=== PATIENT | male | born 1990 | race Caucasian/White ===

== ENCOUNTER 2023-06-27 09:09 | Emergency (ER) | payer OTHER, SELFPAY ==
[2023-06-27 09:34] VITALS: BP 126/80; PULSE 101; RESP 18; TEMP 36.9; O2SAT 97
--- NOTE | 2023-06-27 09:45 | ED.URI ---
HPI - URI/Sore Throat General Chief Complaint: Upper Respiratory Infection Stated Complaint: flu like symptoms Time Seen by Provider: 06/27/23 09:55 Source: patient and RN notes reviewed Mode of arrival: ambulatory Limitations: no limitations History of Present Illness HPI Narrative: 33 year old male presents with concern for 2 day history of fever, BA, STARR, cough. He has taken Dayquil without much relief. He reports cough at night that causes him trouble sleeping. MD elicited complaint: cough and sore throat Related Data Allergies Allergy/AdvReac Type Severity Reaction Status Date / Time amoxicillin [From Augmentin] Allergy Rash Verified 06/27/23 09:35 clavulanic acid Allergy Rash Verified 06/27/23 09:35 [From Augmentin] Review of Systems Review of Systems: CONSTITUTIONAL: Reports malaise, fever. EYES: Denies visual changes, redness, or discharge. ENT: Reports rhinorrhea, congestion, and sore throat. CARDIOVASCULAR: Denies chest pain, palpitations, or edema. RESPIRATORY: Reports cough, dyspnea. GASTROINTESTINAL: Denies abdominal pain, nausea, vomiting, diarrhea SKIN: Denies rash or itching. MUSCULOSKELETAL: Reports myalgia. NEUROLOGIC: Reports headache. All systems reviewed & are unremarkable except as noted in HPI and below PMFSH Comments At time of signature, agree with nursing past medical, surgical, social and family history. There is no relevant family history pertinent to the presenting complaint Exam Narrative: GENERAL: Non toxic-appearing, well-nourished, and in no acute distress. HEAD: Normocephalic EYES: PERRLA, conjunctivae clear ENT: Nares clear, turbinates edematous and erythematous, clear discharge. Mucous membranes moist. TM pearly daniel with dull light reflex bilaterally; no tragal tenderness. Oropharynx not erythematous without lesions. Tonsils not enlarged and without exudate, no drooling, no hoarseness, no trismus, uvula midline. NECK: Supple. No lymphadenopathy CHEST: Clear to auscultation, breath sounds equal. No wheezing, rhonchi, rales, or stridor. No respiratory distress, speaks in full sentences. HEART: Regular rate and rhythm. No murmur heard. SKIN: Warm, dry, no rash. NEURO: Alert and oriented x3. PSYCH: Normal mood and affect Course Course Emergency Course: Patient is aware of diagnosis, understands and agrees to treatment plan. Anticipatory guidance given. Patient agrees to follow-up as directed and is aware of reasons to seek care at the emergency department. Portions of this record may have been created with voice recognition software Level of Care: Express Care Visit Vital Signs Vital signs: Vital Signs Temperature 98.5 F 06/27/23 09:34 Pulse Rate 101 H 06/27/23 09:34 Respiratory Rate 18 06/27/23 09:34 Blood Pressure 126/80 06/27/23 09:34 Pulse Oximetry 97 06/27/23 09:34 Oxygen Delivery Room Air 06/27/23 09:34 Temperature 98.5 F 06/27/23 09:34 Pulse Rate 101 H 06/27/23 09:34 Respiratory Rate 18 06/27/23 09:34 Blood Pressure 126/80 06/27/23 09:34 Pulse Oximetry 97 06/27/23 09:34 Oxygen Delivery Room Air 06/27/23 09:34 Reviewed. MDM - URI/Sore Throat MDM Narrative Medical decision making narrative: Differential diagnosis considered: Mckee virus, strep pharyngitis, allergic rhinitis, upper respiratory tract infection, sinusitis, rhinosinusitis, nasopharyngitis. viral pharyngitis, otitis media, otitis externa, pneumonia, bronchitis, viral cough syndrome, viral syndrome, and influenza. Exam findings show no acute concerns or changes; patient is non-toxic appearing and is in no distress. Patient is appropriate for outpatient treatment and follow-up. Lab Data Attestation: I reviewed the patient's lab results. Labs: Influenza A Screen Positive Reference Range: Negative Influenza B Screen Negative Refe
== END 2023-06-27 10:08 | disposition home or self-care (01) ==
PROVIDERS: Emergency Provider Nurse Practitioner
DX: J10.1 Influenza due to other identified influenza virus with other respiratory manifestations (principal); Z20.822 Contact with and (suspected) exposure to COVID-19
CPT/HCPCS: 87081; 87426; 87804; 87880; 99203; G0463

== ENCOUNTER 2024-02-13 08:29 | Emergency (ER) | payer OTHER, SELFPAY ==
[2024-02-13 08:40] VITALS: BP 125/82; PULSE 86; RESP 17; TEMP 36.4; O2SAT 99
--- NOTE | 2024-02-13 08:45 | ED.BACK ---
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 He reports that pain began yesterday when he bent over to cotton picker an object up off the floor. He has been to a chiropractor and has been taking ibuprofen with minimal relief. Pain is worse with position change, better with standing. Denies loss of bowel or bladder control, denies numbness or tingling. He is observed ambulating with a ivett gait Related Data Allergies Allergy/AdvReac Type Severity Reaction Status Date / Time amoxicillin [From Augmentin] AdvReac Mild Rash Verified 02/13/24 08:34 clavulanic acid AdvReac Mild Rash Verified 02/13/24 08:34 [From Augmentin] Review of Systems Review of Systems: All systems reviewed & are unremarkable except as noted in HPI and below Constitutional: Constitutional: Reports no additional constitutional complaints ENT: Reports system reviewed and no additional complaints, except as documented Cardiovascular: Cardiovascular: Reports no additional cardiovascular complaints Respiratory: Respiratory: Reports no additional respiratory complaints Gastrointestinal: Gastrointestinal: Reports no additional gastrointestinal complaints Musculoskeletal: Musculoskeletal: Reports no additional musculoskeletal complaints, Reports as per HPI, Denies numbness, Reports stiffness and Denies tingling Neurologic: Denies Sensory deficit (Neuro), Denies tingling and Denies paresthesias PMFSH Comments At the time of my signature, I reviewed and agree with the nursing past medical, surgical, social, and family history. There is no relevant family history pertinent to the patient complaint. Exam Const: General: cooperative, no acute distress, alert and awake Orientation/consciousness: oriented to person, oriented to place and oriented to time HENMT: Head: normal to inspection Neck: Neck: no meningeal signs Resp: Effort & Inspection: normal respiratory effort and able to speak in complete sentences Auscultation: clear to auscultation bilaterally, no crackles, no rales, no rhonchi and no wheezes Cardio: Palpation: normal PMI Rate: regular rate Rhythm: regular rhythm Heart sounds: S1 normal heart sound present and S2 normal heart sound present Back/Spine/Pelvis: Back: no CVA tenderness Cervical Spine: cervical ROM normal Thoracic/Lumbar Spine: thoraco-lumbar spasm and No thoracic spinal tenderness Neuro: General: oriented to person, oriented to place, oriented to time and moves all extremities Cranial nerves: Yes CN's II-XII intact bilaterally Motor exam (neuro): 5/5 motor strength present throughout Sensory Exam: normal sensation Psych: Appearance: grossly normal Thought process: Normal thought process present Insight: Good insight present (Psych) Judgement: Good judgement present (Psych) Course Course Level of Care: Express Care Visit Vital Signs Vital signs: Vital Signs Temperature 97.6 F 02/13/24 08:40 Pulse Rate 86 02/13/24 08:40 Respiratory Rate 17 02/13/24 08:40 Blood Pressure 125/82 02/13/24 08:40 Pulse Oximetry 99 02/13/24 08:40 Oxygen Delivery Room Air 02/13/24 08:40 Temperature 97.6 F 02/13/24 08:40 Pulse Rate 86 02/13/24 08:40 Respiratory Rate 17 02/13/24 08:40 Blood Pressure 125/82 02/13/24 08:40 Pulse Oximetry 99 02/13/24 08:40 Oxygen Delivery Room Air 02/13/24 08:40 Reviewed MDM - Back Pain/Injury MDM Narrative Medical decision making narrative: patient appears uncomfortable secondary to back pain. No neuro deficits. No loss of bowel or bladder control. Start steroids and a muscle relaxant. Follow with primary care provider.
== END 2024-02-13 08:59 | disposition home or self-care (01) ==
PROVIDERS: Emergency Provider Nurse Practitioner Family; Referring Provider Emergency Medicine
DX: M54.16 Radiculopathy, lumbar region (principal)
CPT/HCPCS: 99213; G0463